=== PATIENT | male | born 1965 | race Caucasian/White ===

== ENCOUNTER 2017-04-05 14:46 | Emergency (ER) | payer OTHER ==
[~2017-04-05] VITALS: Ht 170.2 cm; Wt 63.5 kg
[2017-04-05] MEDS ORDERED: OLANZAPINE 10 MG VIAL IM ONE ×2 (15:15→15:27)
--- NOTE | 2017-04-05 15:29 | NUR ---
Patient discharged to home in stable conditon. Written and verbal after care instructions given. Patient verbalizes understanding of instructions.pt in custody of [facility]
[2017-04-05 15:31] VITALS: BP 129/81
== END 2017-04-05 15:32 ==
LOC: EDBD 14:47 → ER 14:47
DX: R45.1 Restlessness and agitation (principal); F03.91 Unspecified dementia, unspecified severity, with behavioral disturbance
CPT/HCPCS: A4663; J2358